=== PATIENT | male | born 1955 ===

== ENCOUNTER 2024-06-24 12:49 | Outpatient (CLI) | payer MEDICARE, OTHER, SELFPAY ==
[2024-06-24 13:55] LABS: Chloride 96 mmol/L (98-107); Sodium 136 mmol/L (136-145)
[2024-06-24 13:56] LABS: Potassium 3.6 mmoL/L (3.5-5.1)
[2024-06-24 13:58] LABS: Anion Gap 11.6 mEq/L (5-15); Blood Urea Nitrogen 22 mg/dl (9-20); Carbon Dioxide 32 mmol/L (22.0-30.0); Estimated Glomerular Filt Rate 74 ml/min (>60); GFR (African American) 90 ML/MIN (>60)
[2024-06-24 13:59] LABS: Calcium 9.8 mg/dl (8.4-10.2); Glucose 97 mg/dl (74-100); Magnesium 1.7 mg/dl (1.6-2.3)
== END 2024-06-24 23:59 | disposition home or self-care (01) ==
LOC: LAB.DROPOF 10-14 08:10
PROVIDERS: PCP Family Medicine; Visit Provider Family Medicine
DX: E43 Unspecified severe protein-calorie malnutrition (principal)
CPT/HCPCS: 80048; 83735